=== PATIENT | male | born 1990 | race Two or more races ===

== ENCOUNTER 2021-12-17 14:49 | Emergency (ER) | payer MEDICAID ==
[~2021-12-17] VITALS: Ht 182.9 cm; Wt 109.1 kg
[2021-12-17 15:47] VITALS: BP 100/79
== END 2021-12-17 17:20 | disposition home or self-care (01) ==
LOC: EMS 14:49
DX: S93.402A Sprain of unspecified ligament of left ankle, initial encounter (principal); X58.XXXA Exposure to other specified factors, initial encounter; Y93.89 Activity, other specified; Y92.89 Other specified places as the place of occurrence of the external cause; Y99.8 Other external cause status
CPT/HCPCS: 99284

== ENCOUNTER 2022-09-19 15:25 | Emergency (ER) | payer MEDICAID ==
[~2022-09-19] VITALS: Ht 182.9 cm; Wt 114.5 kg
[2022-09-19 19:26] VITALS: BP 127/81
== END 2022-09-19 20:30 | disposition home or self-care (01) ==
LOC: EMS 15:25
DX: S09.93XA Unspecified injury of face, initial encounter (principal); F41.9 Anxiety disorder, unspecified; Z98.890 Other specified postprocedural states; Y04.8XXA Assault by other bodily force, initial encounter; Y93.89 Activity, other specified; Y92.89 Other specified places as the place of occurrence of the external cause; Y99.8 Other external cause status
CPT/HCPCS: 99281; Z7502

== ENCOUNTER 2022-12-14 17:58 | Emergency (ER) | payer MEDICAID ==
[~2022-12-14] VITALS: Ht 182.9 cm; Wt 113.2 kg
[2022-12-14] MEDS ORDERED: DEXT20TA5 PO (18:04)
[2022-12-14] MEDS ORDERED: CLON-595 PO (18:04)
[2022-12-14] MEDS ORDERED: AMPH30CA PO (18:04)
[2022-12-14] MEDS ORDERED: CEPH-558 PO (19:02)
[2022-12-14] MEDS ORDERED: SERT-439 PO (19:11)
[2022-12-14] MEDS ORDERED: PERTUSS(ACELL),DIPH,TET VAC/PF 0.5 ML SYRINGE IM. ONE (19:15)
[2022-12-14 20:21] VITALS: BP 127/71
== END 2022-12-14 20:24 | disposition home or self-care (01) ==
LOC: EMS 17:58
DX: S60.942A Unspecified superficial injury of right middle finger, initial encounter (principal); F41.9 Anxiety disorder, unspecified; Z98.890 Other specified postprocedural states; X58.XXXA Exposure to other specified factors, initial encounter; Y93.89 Activity, other specified; Y92.89 Other specified places as the place of occurrence of the external cause; Y99.8 Other external cause status
CPT/HCPCS: 90471; 90715; 99283